=== PATIENT | male | born 1975 | race Caucasian/White ===

== ENCOUNTER 2017-09-21 13:20 | Emergency (ER) | payer OTHER ==
[~2017-09-21] VITALS: Ht 175.3 cm; Wt 103.9 kg
[2017-09-21 15:28] VITALS: BP 128/78
== END 2017-09-21 15:29 | disposition home or self-care (01) ==
LOC: EME 13:20
DX: S61.411A Laceration without foreign body of right hand, initial encounter (principal); W23.0XXA Caught, crushed, jammed, or pinched between moving objects, initial encounter; Z23 Encounter for immunization
CPT/HCPCS: 73130; 99281; 99284